=== PATIENT | male | born 1960 | race Caucasian/White ===

== ENCOUNTER 2018-06-09 15:52 | Emergency (ER) | payer OTHER ==
[2018-06-09] MEDS ORDERED: Lidocaine 1% with EPINEPHrine 1:100,000 20 ML MDV INJECT ONE (16:17)
[2018-06-09] MEDS ORDERED: Diphtheria,Pertussis(Acell),Tetanus Vaccine 0.5 ML SDV IM ONE (16:17)
--- NOTE | 2018-06-09 17:55 | CR ---
Right elbow: Four views of the right elbow were obtained. Soft tissue injury is identified laterally. Small cortical fracture fragments are seen off the lateral epicondyle. No additional fracture or other bony abnormality is seen. Impression: 1. Soft tissue injury and small cortical fracture fragments off the lateral epicondyle. Diagnostic code #3
--- NOTE | 2018-06-09 18:13 | EDM.PDOC ---
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 He was up on about 2 to 3 steps and he swung the hammer and what he hit gave way and he fell on some bricks on his right arm. He did not hit his head or hurt his head. He has no chest pain or abdominal pain. He does have a large 20cm angled laceration to the right lateral elbow. He is right handed and his tetanus is not up to date. Onset: Sudden Duration: Minutes: Location: Reports: Upper Extremity, Right (lateral elbow) Quality: Reports: Sharp Severity: Moderate Improves with: Reports: Immobilization Worsens with: Reports: Movement Context: Reports: Trauma (fell off a ladder 2 to 3 steps up) Associated Symptoms: Reports: No Other Symptoms Right Elbow Pain Score (Numeric/FACES): 10 - Related Data Allergies Allergy/AdvReac Type Severity Reaction Status Date / Time No Known Allergies Allergy Verified 06/09/18 16:03 Home Meds: Home Meds cephALEXin [Keflex] 500 mg PO Q6H #40 cap 06/09/18 [Rx] Past Medical History - Past Health History Medical/Surgical History: Denies Medical/Surgical History Social & Family History - Tobacco Use Smoking Status *Q: Never Smoker Second Hand Smoke Exposure: No - Caffeine Use Caffeine Use: Reports: Coffee - Recreational Drug Use Recreational Drug Use: No ED ROS GENERAL - Review of Systems Review Of Systems: See Below Constitutional: Reports: No Symptoms HEENT: Reports: No Symptoms Respiratory: Reports: No Symptoms Cardiovascular: Reports: No Symptoms Endocrine: Reports: No Symptoms GI/Abdominal: Reports: No Symptoms : Reports: No Symptoms Musculoskeletal: Reports: Other (Laceration to the right lateral elbow) ED EXAM, SKIN/RASH Exam: See Below Exam Limited By: No Limitations General Appearance: Alert, No Apparent Distress Ears: Normal External Exam Nose: Normal Inspection Throat/Mouth: Normal Inspection Head: Atraumatic, Normocephalic Neck: Normal Inspection, Supple, Non-Tender Respiratory/Chest: No Respiratory Distress, Lungs Clear, Normal Breath Sounds Cardiovascular: Regular Rate, Rhythm, No Edema, No Murmur GI/Abdominal: Soft, Non-Tender, No Organomegaly, No Mass Back Exam: Normal Inspection Extremities: Other (20 cm angled laceration to the right lateral elbow with exposed muscle. Good sensation and pulses distally.) ED SKIN PROCEDURES - Laceration/Wound Repair Right Elbow Lac/Wound length In cm: 20 Appearance: Mildly Contaminated, Other (angled) Distal NVT: Neuro & Vascular Intact, No Tendon Injury Anesthetic Type: Local Local Anesthesia - Lidocaine (Xylocaine): 1% with EPI Local Anesthetic Volume: Other (10) Skin Prep: Saline Saline Irrigation (cc's): 100 Exploration/Debridement/Repair: Wound Explored, In a Bloodless Field, Explored to Base, Minimal Debridement Closed with: Sutures Suture Size: 3-0 # of Sutures: 12 Suture Type: Nylon, Interrupted, Simple Tetanus Status Addressed: Yes Complications: No - Splinting Right Upper Extremity Splint Site: Right elbow Pre-Procedure NV Status: Normal Post-Procedure NV Status: Normal Splint Material: Fiberglass Splint Design: Gutter (long arm), Sling Applied & Form Fitted By: Provider Provider Post-Splint Application NV Check: NV Status Normal, Good Position Complications: No Course - Vital Signs Last Recorded V/S: Last Vital Signs Temp 97.9 F 06/09/18 15:59 Pulse 66 06/09/18 15:59 Resp 16 06/09/18 15:59 BP 121/75 06/09/18 15:59 Pulse Ox 96 06/09/18 15:59 - Orders/Labs/Meds Orders: Active Orders 24 hr Category Date Time Status Vaccines to be Administered [RC] PER UNIT ROUTINE Care 06/09/18 16:17 Active Meds: Medications Discontinued Medications Generic Name Dose Route Start Last Admin Trade Name Freq PRN Reason Stop Dose Admin Diphtheria/Tetanus/Acell Pertussis 0.5 ml 06/09/18 16:17 06/09/18 16:30 Adacel IM 06/09/18 16:18 0.5 ml .ONCE ONE Administration Lidocaine/Epinephrine 20 ml 06/09/18 16:17 06/09/18 16:45 Xylocaine 1% With Epinephrine 1:100,000 INJECT 06/09/18 16:18 20 ml ONETIME ONE Administration - Re-Assessments/Exams Free Text/Narrative Re-Assessment/Exam: 06/09/18 18:13 I ordered an x-ray of his elbow and up dated his tetanus. The x-ray shows soft tissue injury and small cortical fracture fragments off the lateral epicondyle. This is an open fracture. I called Dr Bowles and he recommended I irrigate it here and get him on some keflex. I will also splint his arm. I was going to have him follow up with Dr Bowles on Friday but he is from [facility] and he thinks he will be there on Friday. He is just here working. Departure - Departure Time of Disposition: 18:20 Disposition: Home, Self-Care 01 Condition: Good Clinical Impression: Fall Qualifiers: Encounter type: initial encounter Qualified Code(s): W19.XXXA - Unspecified fall, initial encounter Laceration of right elbow Qualifiers: Encounter type: initial encounter Qualified Code(s): S51.011A - Laceration without foreign body of right elbow, initial encounter Fracture of lateral epicondyle of humerus Qualifiers: Encounter type: initial encounter Fracture type: open Fracture morphology: unspecified fracture morphology Fracture alignment: nondisplaced Laterality: right Qualified Code(s): S42.434B - Nondisplaced fracture (avulsion) of lateral epicondyle of right humerus, initial encounter for open fracture - Discharge Information *PRESCRIPTION DRUG MONITORING PROGRAM REVIEWED*: Not Applicable *COPY OF PRESCRIPTION DRUG MONITORING REPORT IN PATIENT MARGO: Not Applicable Prescriptions: cephALEXin [Keflex] 500 mg PO Q6H #40 cap Referrals: PCP,None [Primary Care Provider] - Erik Bowles MD [Physician] - 1 Week Forms: ED Department Discharge, ED Return to Work/School Form Additional Instructions: Ice your elbow for 15 minutes 3 times per day for 2 days. Do not change the dressing for 24 hours. After that take the splint off and clean the wound with warm soapy water 2 times per day and apply antibiotic ointment after. Follow up with Dr Bowles on Friday or another orthopedic surgeon in [place]. Take the keflex 4 times per day for 10 days. Take tylenol or motrin for pain. Please return if you are worse. - My Orders Last 24 Hours: My Active Orders 06/09/18 16:17 Vaccines to be Administered [RC] PER UNIT ROUTINE - Assessment/Plan Last 24 Hours: My Active Orders 06/09/18 16:17 Vaccines to be Administered [RC] PER UNIT ROUTINE
== END 2018-06-09 18:30 | disposition home or self-care (01) ==
LOC: JD.ED 15:52
DX: S42.43 Fracture (avulsion) of lateral epicondyle of humerus (principal); S51.011A Laceration without foreign body of right elbow, initial encounter; Y92.219 Unspecified school as the place of occurrence of the external cause; W11.XXXA Fall on and from ladder, initial encounter; Z23 Encounter for immunization
CPT/HCPCS: 12005; 29105; 29125; 73080-26-RT; 73080-RT; 90471; 90715; 99284-25